=== PATIENT | male | born 1975 | race Caucasian/White ===

== ENCOUNTER 2020-03-18 11:03 | Emergency (ER) | payer OTHER, SELFPAY ==
[2020-03-18] MEDS ORDERED: MEPERIDINE HCL 50 MG/ML ONE (12:31)
[2020-03-18] MEDS ORDERED: DIPHENHYDRAMINE 50 MG/ML VIAL ONE (13:38)
--- NOTE | 2020-03-18 13:58 | RAD REPORT ---
EXAM DESCRIPTION: US - Scrotum Testicles - 03/18/2020 1:47 pm CLINICAL HISTORY: Testicular pain COMPARISON: None FINDINGS: Right testicle measures 3.9 x 2 x 3 centimeters. Echotexture is homogeneous. Normal blood flow Left testicle measures 4.1 x 2 x 2.9 centimeters. Echotexture is homogeneous. Normal blood flow The epididymides are normal in size and echotexture. Normal blood flow is seen. 1 centimeter right spermatocele Within the superior left scrotum is an echogenic area. IMPRESSION: 1 centimeter right spermatocele Echogenic area within the superior left scrotum. It is uncertain if this represents a fat filled sheldon ia. CT could be obtained for further evaluation clinically indicated
--- NOTE | 2020-03-18 14:18 | ER ---
Nurse's Notes [facility] Name: Meli Robertson Age: 44 yrs Sex: Male : 1975 Arrival Date: 03/18/2020 Time: 11:11 Bed 13 Private MD: Diagnosis: Varicocele;Spermatocele of epididymis Presentation: 03/18 11:15 Chief complaint: Patient states: L testes pain. Varicocele found, Tylenol #3 don't ll1 help. Called Dr. Zayas office, sent here for further eval. Coronavirus screen: Client denies travel out of the [place] in the last 14 days. At this time, the client does not indicate any symptoms associated with coronavirus-19. Ebola Screen: Patient denies travel to an Ebola-affected area in the 21 days before illness onset. Initial Sepsis Screen: Does the patient meet any 2 criteria? HR > 90 bpm. No. Patient's initial sepsis screen is negative. Does the patient have a suspected source of infection? Yes: Other: varicocele. Risk Assessment: Do you want to hurt yourself or someone else? Patient reports no desire to harm self or others. Onset of symptoms was March 17, 2020. 11:15 Method Of Arrival: Ambulatory ll1 11:15 Acuity: MARY 3 ll1 Historical: - Allergies: 11:15 PENICILLINS; ll1 11:15 metformin; ll1 - PMHx: 11:15 Diabetes - NIDDM; Hypertension; ll1 - PSHx: 11:15 Appendectomy; Cholecystectomy; lap band with removal; ll1 - Immunization history:: Flu vaccine is up to date. - Social history:: Smoking status: Patient denies any tobacco usage or history of. - Family history:: not pertinent. - Hospitalizations: : No recent hospitalization is reported. Screenin:15 Abuse screen: Denies threats or abuse. Nutritional screening: No deficits noted. vg1 Tuberculosis screening: No symptoms or risk factors identified. Fall Risk None identified. Assessment: 12:01 Reassessment: Patient is in US. vg1 12:55 General: Appears in no apparent distress. uncomfortable, Behavior is calm, cooperative. vg1 Pain: Complains of pain in Left testicle. Pain currently is 8 out of 10 on a pain scale. at worst was 10 out of 10 on a pain scale. Quality of pain is described as dull, Pain began yesterday around 0700. Neuro: Level of Consciousness is awake, alert, obeys commands, Oriented to person, place, time, situation. Cardiovascular: Patient's skin is warm and dry. Respiratory: Airway is patent Respiratory effort is even, unlabored, Respiratory pattern is regular, symmetrical. GI: No signs and/or symptoms were reported involving the gastrointestinal system. : No signs and/or symptoms were reported regarding the genitourinary system. EENT: No signs and/or symptoms were reported regarding the EENT system. Derm: Derm: Skin is intact, Skin is pink, warm \T\ dry. Musculoskeletal: Circulation, motion, and sensation intact. 13:30 Reassessment: Patient stated that feels itchy on arms and neck after receiving Demerol. vg1 Provider Notified. Received VO to administer Benedryl 50 mg IVP x1. 14:10 Reassessment: Patient appears in no apparent distress at this time. Patient and/or vg1 family updated on plan of care and expected duration. Pain level reassessed. Patient is alert, oriented x 3, equal unlabored respirations, skin warm/dry/pink. Rated pain level 4/10. Vital Signs: 11:15 BP 152 / 79; Pulse 94; Resp 18; Temp 97.7; Pulse Ox 99% ; Weight 136.08 kg; Height 5 ll1 ft. 9 in. (175.26 cm); Pain 10/10; 13:00 BP 153 / 76; Pulse 87; Resp 16; Pulse Ox 98% on R/A; vg1 13:05 BP 170 / 95; Pulse 87; Resp 16; Pulse Ox 98% on R/A; vg1 13:30 BP 148 / 86; Pulse 80; Resp 14; Pulse Ox 96% on R/A; vg1 14:14 BP 116 / 93; Pulse 82; Resp 14; Pulse Ox 96% on R/A; vg1 11:15 Body Mass Index 44.30 (136.08 kg, 175.26 cm) 1 ED Course: 11:11 Patient arrived in ED. ll1 11:14 Arm band placed on. ll1 11:17 Triage completed. ll1 11:25 Garett Oliver MD is Attending Physician. rn 12:00 Awa Shah RN is Primary Nurse. 1 13:14 Inserted saline lock: 20 gauge in left forearm, using aseptic technique. vg1 13:14 IV is patent, is intact, Flushed left forearm with 2 ml normal saline IV line started vg1 by [facility] student/instructor. 13:15 Patient has correct armband on for positive identification. Bed in low position. Call vg1 light in reach. Side rails up X2. 13:47 US Scrotum Testicles In Process Unspecified. EDMS 14:18 Johnathan Zayas MD is Referral Physician. rn 14:19 Urine collected: clean catch specimen, clear, sonny colored. jp3 14:41 No provider procedures requiring assistance completed. IV discontinued, intact, vg1 bleeding controlled, No redness/swelling at site. Pressure dressing applied. Administered Medications: 13:16 Drug: Demerol 50 mg {Note: rass 0.} Route: IVP; Site: left forearm; vg1 14:22 Follow up: Response: Adverse reaction, Physician notified vg1 13:31 Drug: Benadryl 50 mg Route: IVP; Site: left forearm; vg1 14:22 Follow up: Response: No adverse reaction vg1 Outcome: 14:18 Discharge ordered by . rn 14:41 Discharged to home ambulatory. vg1 14:41 Condition: stable 14:41 Discharge instructions given to patient, Instructed on discharge instructions, follow up and referral plans. Demonstrated understanding of instructions, follow-up care. 14:41 Patient left the ED. vg1 Signatures: Dispatcher [employer] EDMS Garett Oliver MD MD rn Pisarski, Jacob jp3 Awa Shah RN RN vg1 Katia Clemente RN RN ll1 Corrections: (The following items were deleted from the chart) 13:33 12:55 Derm: vg1 vg1 14:20 13:14 Inserted saline lock: 14 gauge 20 gauge in left forearm, using aseptic technique. vg1 vg1
--- NOTE | 2020-03-18 14:19 | EDPHYS ---
Physician Documentation [facility] Name: Meli Robertson Age: 44 yrs Sex: Male : 1975 Arrival Date: 03/18/2020 Time: 11:11 Bed 13 Private MD: ED Physician Garett Oliver HPI: 03/18 11:51 This 44 yrs old Male presents to ER via Ambulatory with complaints of rn Testicular Pain. 11:51 The patient presents with scrotal pain, of the left side, with swelling, tenderness. rn Onset: The symptoms/episode began/occurred yesterday. Modifying factors: The symptoms are alleviated by nothing, the symptoms are aggravated by pressure. Associated signs and symptoms: Pertinent negatives: abdominal pain, fever, hematuria. Severity of symptoms: At their worst the symptoms were moderate, in the emergency department the symptoms are unchanged. The patient has not experienced similar symptoms in the past. Reports left scrotal pain began yesterday, seen at [facility] ER, U/S showed varicocele, CT abdomen with contrast neg per verbal report, given Tylenol with codeine, states not helping. Tried to get into urology today, told to come here for pain control if that bad, was not seen by urology. No trauma. No hematuria. . Historical: - Allergies: 11:15 PENICILLINS; ll1 11:15 metformin; ll1 - PMHx: 11:15 Diabetes - NIDDM; Hypertension; ll1 - PSHx: 11:15 Appendectomy; Cholecystectomy; lap band with removal; ll1 - Immunization history:: Flu vaccine is up to date. - Social history:: Smoking status: Patient denies any tobacco usage or history of. - Family history:: not pertinent. - Hospitalizations: : No recent hospitalization is reported. ROS: 11:51 Constitutional: Negative for fever, chills, and weight loss, Abdomen/GI: Negative for rn abdominal pain, nausea, vomiting, diarrhea, and constipation, : + left testicular pain and swelling. Exam: 11:51 Constitutional: This is a well developed, well nourished patient who is awake, alert, rn appears uncomfortable. Abdomen/GI: soft, non-tender Male : Normal external genitalia appearance, + tenderness with fullness left inferior scrotal region, no skin changes, normal lie. Vital Signs: 11:15 BP 152 / 79; Pulse 94; Resp 18; Temp 97.7; Pulse Ox 99% ; Weight 136.08 kg; Height 5 ll1 ft. 9 in. (175.26 cm); Pain 10/10; 13:00 BP 153 / 76; Pulse 87; Resp 16; Pulse Ox 98% on R/A; vg1 13:05 BP 170 / 95; Pulse 87; Resp 16; Pulse Ox 98% on R/A; vg1 13:30 BP 148 / 86; Pulse 80; Resp 14; Pulse Ox 96% on R/A; vg1 14:14 BP 116 / 93; Pulse 82; Resp 14; Pulse Ox 96% on R/A; vg1 11:15 Body Mass Index 44.30 (136.08 kg, 175.26 cm) ll1 MDM: 11:25 Patient medically screened. rn 14:15 Differential diagnosis: UTI, epididymitis, varicocele, hydrocele, referred pain. Data rn reviewed: vital signs, nurses notes. 14:15 Counseling: I had a detailed discussion with the patient and/or guardian regarding: the rn historical points, exam findings, and any diagnostic results supporting the discharge/admit diagnosis, radiology results, the need for outpatient follow up, to return to the emergency department if symptoms worsen or persist or if there are any questions or concerns that arise at home. Response to treatment: the patient's symptoms have mildly improved after treatment, and as a result, I will discharge patient. ED course: Reevaluated patient, doing better, u/s doesn't show anything acute, has flow, no evidence of torsion. No signs of hernia on exam, had ct yesterday that was normal per report, and states this feels "nothing like kidney stones", which he has had in past. . 03/18 11:43 Order name: Urine Microscopic Only rn 03/18 14:19 Order name: Urine Dipstick--Ancillary (enter results) bd 03/18 11:43 Order name: US Scrotum Testicles; Complete Time: 14:01 rn 03/18 11:43 Order name: Urine Dipstick-Ancillary (obtain specimen); Complete Time: 14:20 rn 03/18 11:43 Order name: IV Start; Complete Time: 12:53 rn Administered Medications: 13:16 Drug: Demerol 50 mg {Note: rass 0.} Route: IVP; Site: left forearm; vg1 14:22 Follow up: Response: Adverse reaction, Physician notified vg1 13:31 Drug: Benadryl 50 mg Route: IVP; Site: left forearm; vg1 14:22 Follow up: Response: No adverse reaction vg1 Disposition: 03/18/20 14:18 Discharged to Home. Impression: Varicocele, Spermatocele of epididymis. - Condition is Stable. - Discharge Instructions: Varicocele, Spermatocele. - Medication Reconciliation Form, Thank You Letter, Antibiotic Education, Prescription Opioid Use form. - Follow up: Johnathan Zayas; When: As needed; Reason: Recheck today's complaints, Re-evaluation by your physician. - Problem is new. - Symptoms have improved. Signatures: Dispatcher [employer] EDMS Garett Oliver MD MD rn Garcia, NIEVES Billings RN vg1 Katia Clemente RN RN ll1 Corrections: (The following items were deleted from the chart) 14:41 14:18 03/18/2020 14:18 Discharged to Home. Impression: Varicocele; Spermatocele of vg1 epididymis. Condition is Stable. Discharge Instructions: Varicocele, Spermatocele. Forms are Medication Reconciliation Form, Thank You Letter, Antibiotic Education, Prescription Opioid Use. Follow up: Johnathan Zayas; When: As needed; Reason: Recheck today's complaints, Re-evaluation by your physician. Problem is new. Symptoms have improved. rn
[2020-03-18 14:22] LABS: Urine Blood 2+ (NEG); Urine Glucose 2+ (NEG); Urine Protein 3+ (NEG); Urine Specific Gravity 1.025 (1.005-1.030)
[2020-03-18 14:54] LABS: Urine Bacteria 20-50 /HPF (NONE SEEN)
[2020-03-18 15:43] VITALS: TEMP 97.7
[2020-03-18 15:46] VITALS: O2SAT 96
[2020-03-18 15:47] VITALS: BP 116/93
== END 2020-03-18 14:41 | disposition home or self-care (01) ==
LOC: EDBD 11:03 → ER 11:03
DX: I86.1 Scrotal varices (principal); N43.40 Spermatocele of epididymis, unspecified; Z88.0 Allergy status to penicillin; Z88.8 Allergy status to other drugs, medicaments and biological substances
CPT/HCPCS: 76870; 81003; 81015; 87086; 87088; 96374; 96375; 99284; J1200; J2175